=== PATIENT | male | born 1935 | race Two or more races ===

== ENCOUNTER → 2022-10-17 | Outpatient (CLI) | payer OTHER ==
[2022-10-17 09:54] LABS: Basophils # (auto) 0 10 ^3/uL (0-0.2); Basophils % (auto) 0.4 % (0.0-2.0); Eosinophils # (auto) 0.2 10 ^3/uL (0-0.8); Eosinophils % (auto) 2.8 % (0.0-7.0); Hematocrit 41.4 % (41.0-53.0); Hemoglobin 13.3 g/dL (13.5-17.5); Lymphocytes # (auto) 1.6 10 ^3/uL (0.4-5.4); Lymphocytes % (auto) 21.2 % (10.0-50.0); Mean Corpuscular Hemoglobin 28.5 pg (28.0-32.0); Mean Corpuscular Hgb Conc. 32.2 g/dL (32.0-36.0); Mean Corpuscular Volume 88.5 fL (80.0-100.0); Monocytes # (auto) 0.6 10 ^3/uL (0-1.3); Monocytes % (auto) 7.9 % (0.0-12.0); Neutrophils # (auto) 5.2 10 ^3/uL (1.6-8.6); Neutrophils % (auto) 67.7 % (37.0-80.0); Nucleated Red Blood Cells % 0.1 %; Red Blood Cells 4.68 10^6/uL (4.5-5.90); Red Cell Distribution Width 13.3 % (11.8-14.3); White Blood Cell 7.6 10^3/uL (4.4-10.8)
[2022-10-17 10:34] LABS: Potassium 4.6 mmol/L (3.5-5.1)
[2022-10-17 10:43] LABS: Albumin 3.7 g/dL (3.4-5.0); BUN/Creatinine Ratio 18.5; Bilirubin, Total 0.9 mg/dL (0.2-1.0); Calcium 8.9 mg/dL (8.5-10.1); Uric Acid 6.1 mg/dL (3.5-7.2)
[2022-10-17 10:49] LABS: Prostate Specific Antigen 0.54 ng/mL (0.0-4.0)
[2022-10-17 10:50] LABS: T3 Total 0.95 ng/mL (0.60-1.81)
[2022-10-17 10:57] LABS: Urine Bacteria NONE SEEN /hpf (None Seen); Urine Blood Negative /uL (Negative); Urine Specific Gravity 1.018 (1.001-1.035); Urine WBC <1 /hpf (0 - 3)
[2022-10-17 11:01] LABS: Free T4 (Free Thyroxine) 1.52 ng/dL (0.89-1.76)
== END | disposition home or self-care (01) ==
LOC: LAB 09:34
PROVIDERS: ATTEND Internal Medicine
DX: E11.22 Type 2 diabetes mellitus with diabetic chronic kidney disease (principal); N18.4 Chronic kidney disease, stage 4 (severe); E78.5 Hyperlipidemia, unspecified; E79.0 Hyperuricemia without signs of inflammatory arthritis and tophaceous disease; N40.1 Benign prostatic hyperplasia with lower urinary tract symptoms
CPT/HCPCS: 36415; 80053; 81001; 82043; 82306; 82465; 83036; 83718; 83721; 84153; 84439; 84480; 84550; 85025; 87086

== ENCOUNTER → 2023-02-11 | Outpatient (CLI) | payer OTHER ==
[2023-02-11 09:39] LABS: Albumin 3.6 g/dL (3.4-5.0); Calcium 8.4 mg/dL (8.5-10.1); Magnesium 2.2 mg/dL (1.6-2.6); Potassium 4.4 mmol/L (3.5-5.1)
[2023-02-11 09:43] LABS: BUN/Creatinine Ratio 14.7 (10.0-20.0); Bilirubin, Total 0.5 mg/dL (0.2-1.0); Total Protein 7.2 g/dL (6.4-8.2); Uric Acid 5.8 mg/dL (3.5-7.2)
[2023-02-11 09:53] LABS: Micro Albumin 68.1 mg/L (0-30.0)
== END | disposition home or self-care (01) ==
LOC: LAB 08:40
PROVIDERS: ATTEND Internal Medicine
DX: I10 Essential (primary) hypertension (principal); E11.69 Type 2 diabetes mellitus with other specified complication; E55.9 Vitamin D deficiency, unspecified; R94.5 Abnormal results of liver function studies; D64.9 Anemia, unspecified; E03.8 Other specified hypothyroidism; E78.5 Hyperlipidemia, unspecified; M87.9 Osteonecrosis, unspecified
CPT/HCPCS: 36415; 80053; 80061; 82043; 82306; 82550; 82570; 83036; 83735; 84550

== ENCOUNTER → 2023-03-20 | Outpatient (CLI) | payer OTHER ==
[2023-03-20 09:24] LABS: Basophils # (auto) 0 10 ^3/uL (0-0.2); Basophils % (auto) 0.4 % (0.0-2.0); Eosinophils # (auto) 0.2 10 ^3/uL (0-0.8); Eosinophils % (auto) 3.3 % (0.0-7.0); Hematocrit 41.3 % (41.0-53.0); Hemoglobin 13.3 g/dL (13.5-17.5); Lymphocytes % (auto) 26.6 % (10.0-50.0); Mean Corpuscular Hgb Conc. 32.2 g/dL (32.0-36.0); Monocytes # (auto) 0.7 10 ^3/uL (0-1.3); Neutrophils # (auto) 4.5 10 ^3/uL (1.6-8.6); Neutrophils % (auto) 60.7 % (37.0-80.0); Nucleated Red Blood Cells % 0.2 %; Red Blood Cells 4.75 10^6/uL (4.5-5.90); Red Cell Distribution Width 13.8 % (11.8-14.3); White Blood Cell 7.4 10^3/uL (4.4-10.8)
[2023-03-20 09:53] LABS: Magnesium 2.4 mg/dL (1.6-2.6); Potassium 4.5 mmol/L (3.5-5.1)
[2023-03-20 10:08] LABS: Albumin 3.5 g/dL (3.4-5.0); BUN/Creatinine Ratio 17.5 (10.0-20.0); Bilirubin, Direct 0.1 mg/dL (0-0.2); Bilirubin, Total 0.4 mg/dL (0.2-1.0); Calcium 8.7 mg/dL (8.5-10.1); Total Protein 7.4 g/dL (6.4-8.2); Uric Acid 6.4 mg/dL (3.5-7.2)
== END | disposition home or self-care (01) ==
LOC: LAB 09:07
PROVIDERS: ATTEND Specialist
DX: E11.8 Type 2 diabetes mellitus with unspecified complications (principal); I10 Essential (primary) hypertension; R94.5 Abnormal results of liver function studies; D64.9 Anemia, unspecified; E78.5 Hyperlipidemia, unspecified; E03.9 Hypothyroidism, unspecified
CPT/HCPCS: 36415; 80053; 80061; 80076; 83036; 83735; 84443; 84550; 85025

== ENCOUNTER → 2023-05-21 | Outpatient (CLI) | payer OTHER ==
[2023-05-21 08:06] LABS: Basophils # (auto) 0 10 ^3/uL (0-0.2); Basophils % (auto) 0.5 % (0.0-2.0); Eosinophils # (auto) 0.2 10 ^3/uL (0-0.8); Eosinophils % (auto) 3.6 % (0.0-7.0); Hematocrit 39.6 % (41.0-53.0); Lymphocytes # (auto) 1.6 10 ^3/uL (0.4-5.4); Lymphocytes % (auto) 27.6 % (10.0-50.0); Mean Corpuscular Hemoglobin 28.5 pg (28.0-32.0); Mean Corpuscular Hgb Conc. 32.8 g/dL (32.0-36.0); Mean Corpuscular Volume 86.8 fL (80.0-100.0); Monocytes # (auto) 0.6 10 ^3/uL (0-1.3); Monocytes % (auto) 9.7 % (0.0-12.0); Neutrophils # (auto) 3.3 10 ^3/uL (1.6-8.6); Neutrophils % (auto) 58.6 % (37.0-80.0); Red Blood Cells 4.57 10^6/uL (4.5-5.90); Red Cell Distribution Width 14.1 % (11.8-14.3); White Blood Cell 5.7 10^3/uL (4.4-10.8)
[2023-05-21 09:13] LABS: Alanine Aminotransferase 17 U/L (7-40); Albumin 4.1 g/dL (3.2-4.8); Alkaline Phosphatase 89 U/L (46-116); Anion Gap 5.7 (5-15); Aspartate Aminotransferase 14 U/L (13-40); BUN/Creatinine Ratio 12.7 (10.0-20.0); Blood Urea Nitrogen 20 mg/dL (9-23); Carbon Dioxide 27.3 mmol/L (20-30); Chloride 106 mmol/L (98-107); Cholesterol 129 mg/dL (< 200); Glucose 128 mg/dL (74-106); HDL Cholesterol 41 mg/dL (40-59); LDL Cholesterol 70 mg/dL (< 100); Potassium 4.7 mmol/L (3.5-5.1); Sodium 139 mmol/L (136-145); Triglycerides 134 mg/dL (< 150)
[2023-05-21 09:14] LABS: Bilirubin, Total 0.4 mg/dL (0.2-1.0)
== END | disposition home or self-care (01) ==
LOC: LAB 07:38
PROVIDERS: ATTEND Specialist
DX: I10 Essential (primary) hypertension (principal); R94.5 Abnormal results of liver function studies; D64.9 Anemia, unspecified; E78.5 Hyperlipidemia, unspecified; E11.8 Type 2 diabetes mellitus with unspecified complications; E03.9 Hypothyroidism, unspecified
CPT/HCPCS: 36415; 80053; 80061; 83036; 84443; 85025

== ENCOUNTER → 2023-12-24 | Outpatient (CLI) | payer MEDICAID ==
[2023-12-24 08:36] LABS: Basophils # (auto) 0 10 ^3/uL (0-0.2); Basophils % (auto) 0.3 % (0.0-2.0); Eosinophils # (auto) 0.2 10 ^3/uL (0-0.8); Eosinophils % (auto) 2.3 % (0.0-7.0); Hemoglobin 13.4 g/dL (13.5-17.5); Lymphocytes # (auto) 1.7 10 ^3/uL (0.4-5.4); Lymphocytes % (auto) 24.3 % (10.0-50.0); Mean Corpuscular Hemoglobin 28.3 pg (28.0-32.0); Mean Corpuscular Hgb Conc. 31.8 g/dL (32.0-36.0); Mean Corpuscular Volume 88.9 fL (80.0-100.0); Monocytes # (auto) 0.5 10 ^3/uL (0-1.3); Monocytes % (auto) 7.7 % (0.0-12.0); Neutrophils # (auto) 4.5 10 ^3/uL (1.6-8.6); Neutrophils % (auto) 65.4 % (37.0-80.0); Red Blood Cells 4.72 10^6/uL (4.5-5.90); Red Cell Distribution Width 13.6 % (11.8-14.3); White Blood Cell 6.9 10^3/uL (4.4-10.8)
[2023-12-24 10:01] LABS: Creatinine, Urine 111.95 mg/dL (30.0-125.0)
[2023-12-24 10:02] LABS: Alanine Aminotransferase 15 U/L (7-40); Albumin 4.2 g/dL (3.2-4.8); Alkaline Phosphatase 94 U/L (46-116); Anion Gap 5 (5-15); BUN/Creatinine Ratio 16.6 (10.0-20.0); Blood Urea Nitrogen 26 mg/dL (9-23); Calcium 9.2 mg/dL (8.5-10.1); Carbon Dioxide 28 mmol/L (20-30); Chloride 107 mmol/L (98-107); Glucose 167 mg/dL (74-106); LDL Cholesterol 89 mg/dL (< 100); Potassium 4.9 mmol/L (3.5-5.1); Sodium 140 mmol/L (136-145); Triglycerides 87 mg/dL (< 150)
[2023-12-24 10:03] LABS: Aspartate Aminotransferase 15 U/L (13-40); Bilirubin, Total 0.5 mg/dL (0.2-1.0); Cholesterol 145 mg/dL (< 200); Creatine Kinase IFCC 72 U/L (46-171); HDL Cholesterol 46 mg/dL (40-59); Total Protein 7.1 g/dL (5.7-8.2)
== END | disposition home or self-care (01) ==
LOC: LAB 08:18
PROVIDERS: ATTEND Internal Medicine
DX: Z00.00 Encounter for general adult medical examination without abnormal findings (principal); E11.69 Type 2 diabetes mellitus with other specified complication; E55.9 Vitamin D deficiency, unspecified; E78.5 Hyperlipidemia, unspecified
CPT/HCPCS: 36415; 80053; 80061; 82043; 82306; 82550; 82570; 83036; 85025

== ENCOUNTER 2024-02-07 18:57 | Emergency (ER) | payer MEDICAID ==
[~2024-02-07] VITALS: Ht 177.8 cm; Wt 80.4 kg
[2024-02-07 20:02] VITALS: BP 138/59; PULSE 99; RESP 18; TEMP 99.1; O2SAT 98
[2024-02-07] MEDS ORDERED: CEPH500C PO (20:09)
[2024-02-07] MEDS: LIDOCAINE 1% HCL (LOCAL ANESTH.) INJ 20ML MDV ID ONE (20:30)
[2024-02-07] MEDS: cefTRIAXone SOD 1,000 MG VL IM ONE (20:31)
[2024-02-07] MEDS: ACETAMINOPHEN 325 MG TAB PO ONE (20:31)
== END 2024-02-07 20:46 | disposition home or self-care (01) ==
LOC: ER 18:57
DX: L03.116 Cellulitis of left lower limb (principal); R60.9 Edema, unspecified; E11.9 Type 2 diabetes mellitus without complications; I10 Essential (primary) hypertension; E78.5 Hyperlipidemia, unspecified
CPT/HCPCS: 96372; 99283; J0696

== ENCOUNTER → 2024-04-20 | Outpatient (CLI) | payer MEDICAID ==
[~2024-04-20] MED LIST: CEPH500C PO
[2024-04-20 08:24] LABS: Basophils # (auto) 0 10 ^3/uL (0-0.2); Basophils % (auto) 0.5 % (0.0-2.0); Eosinophils # (auto) 0.3 10 ^3/uL (0-0.8); Eosinophils % (auto) 5.4 % (0.0-7.0); Hematocrit 37.9 % (41.0-53.0); Hemoglobin 12.6 g/dL (13.5-17.5); Lymphocytes # (auto) 1.3 10 ^3/uL (0.4-5.4); Mean Corpuscular Hemoglobin 29.1 pg (28.0-32.0); Mean Corpuscular Hgb Conc. 33.2 g/dL (32.0-36.0); Mean Corpuscular Volume 87.7 fL (80.0-100.0); Monocytes # (auto) 0.5 10 ^3/uL (0-1.3); Monocytes % (auto) 9.4 % (0.0-12.0); Neutrophils # (auto) 3.1 10 ^3/uL (1.6-8.6); Neutrophils % (auto) 59.7 % (37.0-80.0); Nucleated Red Blood Cells % 0.1 %; Red Blood Cells 4.32 10^6/uL (4.5-5.90); Red Cell Distribution Width 13.7 % (11.8-14.3); White Blood Cell 5.2 10^3/uL (4.4-10.8)
[2024-04-20 09:11] LABS: Alanine Aminotransferase 23 U/L (7-40); Alkaline Phosphatase 85 U/L (46-116); Anion Gap 4 (5-15); Aspartate Aminotransferase 17 U/L (13-40); BUN/Creatinine Ratio 17.1 (10.0-20.0); Blood Urea Nitrogen 29 mg/dL (9-23); Calcium 9.2 mg/dL (8.7-10.4); Carbon Dioxide 28 mmol/L (20-30); Chloride 108 mmol/L (98-107); Glucose 140 mg/dL (74-106); LDL Cholesterol 75 mg/dL (< 100); Potassium 4.7 mmol/L (3.5-5.1); Sodium 140 mmol/L (136-145); Triglycerides 89 mg/dL (< 150)
[2024-04-20 09:12] LABS: Bilirubin, Total 0.5 mg/dL (0.2-1.0); Cholesterol 131 mg/dL (< 200); Creatine Kinase IFCC 102 U/L (46-171); HDL Cholesterol 37 mg/dL (40-59); Total Protein 6.5 g/dL (5.7-8.2)
== END | disposition home or self-care (01) ==
LOC: LAB 07:58
PROVIDERS: ATTEND Internal Medicine
DX: E11.69 Type 2 diabetes mellitus with other specified complication (principal); E78.5 Hyperlipidemia, unspecified; E55.9 Vitamin D deficiency, unspecified
CPT/HCPCS: 36415; 80053; 80061; 82043; 82306; 82550; 83036; 85025

== ENCOUNTER → 2024-05-27 | Outpatient (CLI) | payer MEDICAID ==
[2024-05-27 08:46] LABS: Basophils # (auto) 0 10 ^3/uL (0-0.2); Basophils % (auto) 0.4 % (0.0-2.0); Eosinophils # (auto) 0.3 10 ^3/uL (0-0.8); Eosinophils % (auto) 5.2 % (0.0-7.0); Hemoglobin 13.8 g/dL (13.5-17.5); Lymphocytes # (auto) 1.5 10 ^3/uL (0.4-5.4); Lymphocytes % (auto) 26.9 % (10.0-50.0); Mean Corpuscular Hgb Conc. 32.9 g/dL (32.0-36.0); Monocytes # (auto) 0.5 10 ^3/uL (0-1.3); Monocytes % (auto) 9.6 % (0.0-12.0); Neutrophils # (auto) 3.3 10 ^3/uL (1.6-8.6); Neutrophils % (auto) 57.9 % (37.0-80.0); Nucleated Red Blood Cells % 0.2 %; Platelet Count (auto) 191 10^3/uL (140-450); Red Blood Cells 4.78 10^6/uL (4.5-5.90); Red Cell Distribution Width 13.6 % (11.8-14.3); White Blood Cell 5.7 10^3/uL (4.4-10.8)
[2024-05-27 09:11] LABS: Alanine Aminotransferase 17 U/L (7-40); Albumin 4.2 g/dL (3.2-4.8); Alkaline Phosphatase 89 U/L (46-116); Anion Gap 6 (5-15); Aspartate Aminotransferase 14 U/L (13-40); BUN/Creatinine Ratio 14.6 (10.0-20.0); Bilirubin, Direct 0.2 mg/dL (<0.3); Blood Urea Nitrogen 23 mg/dL (9-23); Calcium 9.4 mg/dL (8.7-10.4); Carbon Dioxide 27 mmol/L (20-30); Chloride 106 mmol/L (98-107); Cholesterol 134 mg/dL (< 200); Glucose 140 mg/dL (74-106); HDL Cholesterol 42 mg/dL (40-59); LDL Cholesterol 74 mg/dL (< 100); Potassium 4.7 mmol/L (3.5-5.1); Sodium 139 mmol/L (136-145); Triglycerides 130 mg/dL (< 150)
[2024-05-27 09:12] LABS: Bilirubin, Total 0.5 mg/dL (0.2-1.0)
== END | disposition home or self-care (01) ==
LOC: LAB 08:19
PROVIDERS: ATTEND Specialist
DX: I10 Essential (primary) hypertension (principal); E11.9 Type 2 diabetes mellitus without complications; E78.5 Hyperlipidemia, unspecified; R68.89 Other general symptoms and signs; E03.9 Hypothyroidism, unspecified; D64.9 Anemia, unspecified
CPT/HCPCS: 36415; 80053; 80061; 82248; 84443; 85025

== ENCOUNTER → 2024-09-10 | Outpatient (CLI) | payer MEDICAID ==
[2024-09-10 09:22] LABS: Urine Bacteria None Seen /hpf (None Seen)
[2024-09-10 09:54] LABS: Basophils # (auto) 0 10 ^3/uL (0-0.2); Basophils % (auto) 0.5 % (0.0-2.0); Eosinophils # (auto) 0.2 10 ^3/uL (0-0.8); Eosinophils % (auto) 3.1 % (0.0-7.0); Hematocrit 42.1 % (41.0-53.0); Lymphocytes # (auto) 1.7 10 ^3/uL (0.4-5.4); Lymphocytes % (auto) 25.5 % (10.0-50.0); Mean Corpuscular Hemoglobin 29.2 pg (28.0-32.0); Mean Corpuscular Hgb Conc. 33.4 g/dL (32.0-36.0); Mean Corpuscular Volume 87.5 fL (80.0-100.0); Monocytes # (auto) 0.7 10 ^3/uL (0-1.3); Monocytes % (auto) 10.2 % (0.0-12.0); Neutrophils # (auto) 4.2 10 ^3/uL (1.6-8.6); Neutrophils % (auto) 60.7 % (37.0-80.0); Nucleated Red Blood Cells % 0.2 %; Platelet Count (auto) 198 10^3/uL (140-450); Red Cell Distribution Width 13.2 % (11.8-14.3); White Blood Cell 6.8 10^3/uL (4.4-10.8)
[2024-09-10 09:59] LABS: Urine Blood Negative /uL (Negative); Urine Clarity Clear (Clear); Urine Color Light-Yellow (Yellow); Urine Hyaline Cast FEW /lpf (0 - 2); Urine Protein, UAD Negative (Negative); Urine Specific Gravity 1.015 (1.001-1.035); Urine Squamous Epithelial Cell FEW /hpf (<5); Urine Urobilinogen Normal (Negative); Urine WBC <1 /hpf (0 - 3); Urine pH 6.5 (5.0-9.0)
[2024-09-10 10:47] LABS: Alanine Aminotransferase 18 U/L (7-40); Albumin 4.2 g/dL (3.2-4.8); Alkaline Phosphatase 88 U/L (46-116); Anion Gap 7 (5-15); Aspartate Aminotransferase 16 U/L (13-40); BUN/Creatinine Ratio 13.6 (10.0-20.0); Bilirubin, Total 0.7 mg/dL (0.2-1.0); Calcium 9.8 mg/dL (8.7-10.4); Carbon Dioxide 28 mmol/L (20-31); Chloride 104 mmol/L (98-107); Cholesterol 138 mg/dL (< 200); Creatine Kinase IFCC 73 U/L (46-171); HDL Cholesterol 46 mg/dL (40-59); LDL Cholesterol 77 mg/dL (< 100); Potassium 4.6 mmol/L (3.5-5.1); Sodium 139 mmol/L (136-145); Total Protein 7.1 g/dL (5.7-8.2); Triglycerides 82 mg/dL (< 150)
[2024-09-10 10:56] LABS: Blood Urea Nitrogen 25 mg/dL (9-23); Glucose 180 mg/dL (74-106)
[2024-09-10 11:38] LABS: % Iron Saturation 34.9 % (20-55)
[2024-09-10 12:17] LABS: Free T3 2.57 pg/mL (2.3-4.2)
[2024-09-10 12:18] LABS: Folate (Folic Acid) 17.96 ng/mL (>5.38); Free T4 (Free Thyroxine) 1.17 ng/dL (0.89-1.76)
== END | disposition home or self-care (01) ==
LOC: LAB 09:04
PROVIDERS: ATTEND Internal Medicine
DX: Z00.00 Encounter for general adult medical examination without abnormal findings (principal); E78.5 Hyperlipidemia, unspecified; E55.9 Vitamin D deficiency, unspecified; E11.22 Type 2 diabetes mellitus with diabetic chronic kidney disease; N18.9 Chronic kidney disease, unspecified; I48.91 Unspecified atrial fibrillation; I70.0 Atherosclerosis of aorta
CPT/HCPCS: 36415; 80053; 80061; 81001; 82043; 82306; 82550; 82607; 82728; 82746; 83036; 83540; 83550; 84439; 84443; 84481; 85025; 87086

== ENCOUNTER → 2024-12-20 | Outpatient (CLI) | payer MEDICAID ==
[2024-12-20 08:26] LABS: Basophils # (auto) 0 10 ^3/uL (0-0.2); Basophils % (auto) 0.5 % (0.0-2.0); Eosinophils # (auto) 0.2 10 ^3/uL (0-0.8); Eosinophils % (auto) 2.8 % (0.0-7.0); Hematocrit 43.1 % (41.0-53.0); Hemoglobin 13.8 g/dL (13.5-17.5); Lymphocytes # (auto) 1.5 10 ^3/uL (0.4-5.4); Lymphocytes % (auto) 26.5 % (10.0-50.0); Mean Corpuscular Hemoglobin 28.2 pg (28.0-32.0); Mean Corpuscular Volume 87.9 fL (80.0-100.0); Monocytes # (auto) 0.6 10 ^3/uL (0-1.3); Monocytes % (auto) 10.3 % (0.0-12.0); Neutrophils # (auto) 3.3 10 ^3/uL (1.6-8.6); Neutrophils % (auto) 59.9 % (37.0-80.0); Platelet Count (auto) 178 10^3/uL (140-450); Red Blood Cells 4.91 10^6/uL (4.5-5.90); Red Cell Distribution Width 13.2 % (11.8-14.3); White Blood Cell 5.5 10^3/uL (4.4-10.8)
[2024-12-20 08:48] LABS: Creatinine, Urine 83.46 mg/dL (30.0-125.0)
[2024-12-20 08:53] LABS: Alanine Aminotransferase 24 U/L (7-40); Albumin 4.3 g/dL (3.2-4.8); Alkaline Phosphatase 92 U/L (46-116); Anion Gap 8 (5-15); Aspartate Aminotransferase 16 U/L (13-40); BUN/Creatinine Ratio 16.6 (10.0-20.0); Bilirubin, Direct 0.2 mg/dL (<0.3); Bilirubin, Total 0.5 mg/dL (0.2-1.0); Blood Urea Nitrogen 31 mg/dL (9-23); Calcium 9.6 mg/dL (8.7-10.4); Carbon Dioxide 25 mmol/L (20-31); Chloride 105 mmol/L (98-107); Cholesterol 133 mg/dL (< 200); Creatine Kinase IFCC 76 U/L (46-171); Glucose 170 mg/dL (74-106); HDL Cholesterol 40 mg/dL (40-59); LDL Cholesterol 76 mg/dL (< 100); Potassium 4.8 mmol/L (3.5-5.1); Sodium 138 mmol/L (136-145); Total Protein 7.1 g/dL (5.7-8.2); Triglycerides 106 mg/dL (< 150)
[2024-12-20 10:34] LABS: Free T3 2.65 pg/mL (2.3-4.2)
[2024-12-20 10:36] LABS: Free T4 (Free Thyroxine) 1.19 ng/dL (0.89-1.76)
== END | disposition home or self-care (01) ==
LOC: LAB 07:54
PROVIDERS: ATTEND Internal Medicine
DX: I12.9 Hypertensive chronic kidney disease with stage 1 through stage 4 chronic kidney disease, or unspecified chronic kidney disease (principal); E11.22 Type 2 diabetes mellitus with diabetic chronic kidney disease; I70.0 Atherosclerosis of aorta; I48.91 Unspecified atrial fibrillation; E03.9 Hypothyroidism, unspecified; E78.5 Hyperlipidemia, unspecified; R68.89 Other general symptoms and signs; D63.1 Anemia in chronic kidney disease; Z00.01 Encounter for general adult medical examination with abnormal findings
CPT/HCPCS: 36415; 80053; 80061; 80076; 82043; 82306; 82550; 82570; 83036; 84439; 84443; 84481; 85025

== ENCOUNTER 2025-04-07 08:45 | Outpatient (CLI) | payer MEDICAID ==
[2025-04-07 09:32] LABS: Hematocrit 38.7 % (41.0-53.0); Hemoglobin 12.8 g/dL (13.5-17.5); Mean Corpuscular Hemoglobin 28.8 pg (28.0-32.0); Mean Corpuscular Volume 86.9 fL (80.0-100.0); Nucleated Red Blood Cells % 0.0 %
[2025-04-07 10:57] LABS: Alanine Aminotransferase 24 U/L (7-40); Albumin 4.0 g/dL (3.2-4.8); Alkaline Phosphatase 85 U/L (46-116); Anion Gap 8 (5-15); BUN/Creatinine Ratio 16.5 (10.0-20.0); Bilirubin, Direct 0.1 mg/dL (<0.3); Bilirubin, Total 0.4 mg/dL (0.2-1.0); Calcium 9.4 mg/dL (8.7-10.4); Carbon Dioxide 27 mmol/L (20-31); Chloride 103 mmol/L (98-107); Cholesterol 135 mg/dL (< 200); Potassium 4.9 mmol/L (3.5-5.1); Sodium 138 mmol/L (136-145); Total Protein 6.5 g/dL (5.7-8.2); Triglycerides 129 mg/dL (< 150)
[2025-04-07 11:02] LABS: Blood Urea Nitrogen 26 mg/dL (9-23); Glucose 152 mg/dL (74-106); HDL Cholesterol 37 mg/dL (40-59)
== END 2025-04-07 17:00 | disposition home or self-care (01) ==
LOC: LAB 08:45
PROVIDERS: ATTEND Specialist
DX: I11.0 Hypertensive heart disease with heart failure (principal); I50.9 Heart failure, unspecified; E11.9 Type 2 diabetes mellitus without complications; E78.5 Hyperlipidemia, unspecified; E03.9 Hypothyroidism, unspecified; R68.89 Other general symptoms and signs; D64.9 Anemia, unspecified
CPT/HCPCS: 36415; 80053; 80061; 82248; 83036; 84443; 85025

== ENCOUNTER → 2025-04-26 | Outpatient (CLI) | payer MEDICAID ==
[2025-04-26 09:09] LABS: Alanine Aminotransferase 21 U/L (7-40); Albumin 4.2 g/dL (3.2-4.8); Alkaline Phosphatase 88 U/L (46-116); Anion Gap 9 (5-15); BUN/Creatinine Ratio 13.6 (10.0-20.0); Calcium 9.1 mg/dL (8.7-10.4); Carbon Dioxide 27 mmol/L (20-31); Chloride 104 mmol/L (98-107); Cholesterol 131 mg/dL (< 200); Potassium 4.5 mmol/L (3.5-5.1); Sodium 140 mmol/L (136-145); Total Protein 6.8 g/dL (5.7-8.2); Triglycerides 130 mg/dL (< 150)
[2025-04-26 09:10] LABS: Bilirubin, Total 0.4 mg/dL (0.2-1.0)
[2025-04-26 09:11] LABS: Blood Urea Nitrogen 25 mg/dL (9-23); Glucose 133 mg/dL (74-106); HDL Cholesterol 40 mg/dL (40-59)
[2025-04-26 09:18] LABS: Microalb/Creat Ratio, Urine 3.0
== END | disposition home or self-care (01) ==
LOC: LAB 08:17
PROVIDERS: ATTEND Internal Medicine
DX: E11.69 Type 2 diabetes mellitus with other specified complication (principal); E78.5 Hyperlipidemia, unspecified; E03.9 Hypothyroidism, unspecified
CPT/HCPCS: 36415; 80053; 80061; 82043; 82570; 83036; 84436; 84443; 84480

== ENCOUNTER 2025-07-14 08:29 | Outpatient (CLI) | payer MEDICAID ==
[2025-07-14 09:03] LABS: Hematocrit 44.4 % (41.0-53.0); Hemoglobin 14.6 g/dL (13.5-17.5); Mean Corpuscular Hemoglobin 28.6 pg (28.0-32.0); Mean Corpuscular Volume 86.9 fL (80.0-100.0); Nucleated Red Blood Cells % 0.0 %
[2025-07-14 09:40] LABS: Alanine Aminotransferase 21 U/L (7-40); Albumin 4.0 g/dL (3.2-4.8); Alkaline Phosphatase 99 U/L (46-116); Anion Gap 11 (5-15); BUN/Creatinine Ratio 13.8 (10.0-20.0); Bilirubin, Direct 0.1 mg/dL (<0.3); Calcium 9.0 mg/dL (8.7-10.4); Carbon Dioxide 28 mmol/L (20-31); Chloride 103 mmol/L (98-107); Cholesterol 130 mg/dL (< 200); Potassium 4.4 mmol/L (3.5-5.1); Sodium 142 mmol/L (136-145); Total Protein 7.0 g/dL (5.7-8.2); Triglycerides 113 mg/dL (< 150)
[2025-07-14 09:41] LABS: Bilirubin, Total 0.4 mg/dL (0.2-1.0); Blood Urea Nitrogen 25 mg/dL (9-23); Glucose 137 mg/dL (74-106); HDL Cholesterol 37 mg/dL (40-59)
== END 2025-07-14 17:00 | disposition home or self-care (01) ==
LOC: LAB 08:29
PROVIDERS: ATTEND Specialist
DX: I11.0 Hypertensive heart disease with heart failure (principal); I50.9 Heart failure, unspecified; E11.9 Type 2 diabetes mellitus without complications; E03.9 Hypothyroidism, unspecified; E78.5 Hyperlipidemia, unspecified; D64.9 Anemia, unspecified; R68.89 Other general symptoms and signs
CPT/HCPCS: 36415; 80053; 80061; 82248; 83036; 84443; 85025